=== PATIENT | female | born 1995 | race Caucasian/White ===

== ENCOUNTER → 2017-07-01 | Day surgery (SDC) | payer BC, OTHER ==
[2017-06-18 11:50] VITALS: Ht 172.7 cm; Wt 54.5 kg
--- NOTE | 2017-06-30 08:45 | History and Physical: Surg Cnt ---
History & Physical Date June 30, 2017. Chief Complaint tonsillitis History of Present Illness The patient is a 21 year old female with complaints of chronic tonsillitis Additional History Hepatic Disease: No Endocrine Disorder: No Kidney Disease: No Hypertension: No Heart Disease: No Bleeding Tendencies: No Infectious Diseases: No Allergies Coded Allergies: No Known Allergies (Unverified , 06/18/17) Home Medications Scheduled Clindamycin Hcl (Cleocin), 300 MG PO TID Multiple Vitamins W/ Minerals (Centrum), 1 TAB PO DAILY Physical Examination Skin: warm/dry, no rash Eyes: normal inspection, EOMI, sclerae normal ENT: normal ENT inspection, pharynx normal Head: normocephalic, atraumatic Neck: supple, no adenopathy, trachea midline Respiratory/Chest: lungs clear, normal breath sounds, no respiratory distress Cardiovascular: regular rate, rhythm, no edema, no murmur Abdomen / GI: normal bowel sounds, non tender Back: normal inspection Extremities: normal inspection, normal range of motion Neurologic/Psych: no motor/sensory deficits, alert, normal reflexes, oriented x 3 Diagnosis chronic tonsillitis Plan of Treatment adenotonsillectomy
[~2017-07-01] VITALS: Ht 172.7 cm; Wt 54.5 kg
[~2017-07-01] MED LIST: ACETAMINOPHEN/HYDROCODONE ELIX 15 ML/CUP UDP PO PRN; ALBUTEROL 0.083% NEBU SOLN 3 ML VIAL INH STA; ATROPINE SULFATE 0.1 MG/ML 5ML SYR IV PRN; BUPIVACAINE/EPINEPHRINE 0.5% MPF 1:200,000 30 ML VIAL ONE; CEFAZOLIN 1000MG IV PUSH 7.5 ML IV SCH; CLIN300C2 PO; EpHEDrine SULFATE INJ 50 MG/ML AMP IV PRN; FENTANYL CITRATE INJ 50 MCG/1 ML 2 ML VIAL IV PRN; FENTANYL CITRATE INJ 50 MCG/1 ML 2 ML VIAL ONE; FLUMAZENIL 0.1 MG/1 ML 10 ML VIAL IV PRN; GLYCOPYRROLATE INJ 0.2 MG/ML VIAL ONE; HYDR1SOL10 PO; LIDOCAINE HCL 2% 2 ML VIAL (20MG/ML) ONE; MIDAZOLAM HCL 1 MG/ML 2ML VIAL ONE; MULTTAB5 PO; NALOXONE HCL 0.4 MG/1 ML VIAL/CARP IV PRN; NEOSTIGMINE METHYLSULFATE 5 MG/5 ML SYR ONE; NURSING VERBAL MED ORDER ONE; ONDANSETRON INJ 2 MG/ML 2 ML VIAL IV PRN; PROMETHAZINE HCL INJ 12.5 MG in SODIUM CHLORIDE 0.9% 50ML 50 ML IV PRN; PROPOFOL IV EMULSION 10 MG/ML 20 ML VIAL ONE; RACEPINEPHRINE 2.25% NEBU SOLN 0.5 ML VIAL INH ONE; SODIUM CHLORIDE 0.9% 1000ML 1,000 ML IV SCH; SODIUM CHLORIDE 0.9% NEBU SOLN 3 ML NEB ONE
--- NOTE | 2017-07-01 07:56 | History & Physical Bridge Note ---
H&P Re-Evaluation Bridge Note: I have examined the patient, reviewed the History & Physical and in the interval since the performance of the History & Physical I have noted the following changes of clinical significance: No changes noted
[2017-07-01] MEDS: LACTATED RINGER'S 1000ML 1,000 ML IV SCH ×2 (07:57→10:12)
--- NOTE | 2017-07-01 08:59 | Discharge Instructions-SurgCtr ---
Discharge Instructions Date of Service July 01, 2017. Visit Reason for Visit: Chronic Tonsillitis Discharge Discharge Diagnosis / Problem: same Discharge Goals Goal(s): Improve disease control Activity Recommendations Activity Limitations: per Instructions/Follow-up section Anesthesia . Post Anesthesia Instructions: If you have had General Anesthesia or IV Sedation: * Do not drive today. * Resume driving when surgeon permits. * Do not make important decisions or sign legal documents today. * Call surgeon for: 1. Temperature elevations greater than 101 degrees F. 2. Uncontrollable pain. 3. Excessive bleeding. 4. Persistent nausea and vomiting. 5. Medication intolerance (nausea, vomiting or rash). * For nausea and vomiting use only clear liquids such as: tea, soda, bouillon until nausea subsides, then gradually increase diet as tolerated. * If you have any concerns or questions, call your surgeon's office. If physician is unavailable and it is an emergency, call 911 or go to the nearest emergency room. . Instructions / Follow-Up Instructions / Follow-Up ACTIVITY RECOMMENDATIONS: * During the first few days, activities should be limited. * Stay indoors for several days. * After 48 hours, activity can gradually be increased to normal activity. RETURN TO SCHOOL/WORK: * Return to school or work in one week. * No physical education for two weeks. OVER THE COUNTER MEDICATIONS: * You may use Tylenol * Avoid aspirin or aspirin containing products, e.g. as they may increase bleeding. SPECIAL CARE INSTRUCTIONS: * Avoid coughing or clearing the throat. * Do not use a straw. * A sore throat is expected frequently accompanied by pain radiating to the ears. This is normal. * Expect bad breath until "scabs" are healed. * Notify the doctor if bleeding occurs, vomiting, temperature greater than 101 degrees Fahrenheit. Call or cell phone: . * If bleeding occurs, it is usually in the first 24 hours or after the 5th day. If unable to reach the doctor, go to the nearest Emergency Department. Special Diet: * Fluids are very important and should be encouraged to maintain adequate hydration. * To maintain nutrition, eat soft foods and after 48 hours the consistency of foods can be increased. Examples are jello, soup, pasta, ice cream and mashed foods. FOLLOW UP VISIT: Follow-up visit with Dr. Mcgee in 2 weeks. Please call to schedule if not already scheduled. Diet Recommendations Home Diet: special diet Diet Texture: Mechanical Soft (ground) Pending Studies Studies pending at discharge: no Medical Emergencies . Who to Call and When: Medical Emergencies: If at any time you feel your situation is an emergency, please call 911 immediately. . Non-Emergent Contact Non-Emergency issues call your: Primary Care Provider . . "Provider Documentation" section prepared by Viktoriya Mcgee. . [place] Drug Monitoring Program Search Results: no issues identified
--- NOTE | 2017-07-01 09:19 | [facility] Post Operative Brief Note ---
Immediate Operative Summary Operative Date July 01, 2017. Pre-Operative Diagnosis Chronic Tonsillitis Post-Operative Diagnosis Same Procedure(s) Performed Tonsillectomy And Adenoidectomy Surgeon Dr. Mcgee [employer] Steward/Stewardess Surgeon(s) None Estimated Blood Loss 5 mL Findings Consistent with Post-Op Diagnosis Specimens A. Right Tonsil B. Left Tonsil Drains None Anesthesia Type General Complication(s) none Disposition Accompanied Pt To Recover: yes Disposition: Recovery Room / PACU Overlapping Procedure I was present for: the critical portions of procedure. I was immediately available: during the entire case
[2017-07-01 10:42] VITALS: BP 107/64; PULSE 93; TEMP 37.4; O2SAT 97
--- NOTE | 2017-07-01 10:55 | OPERATIVE REPORT ---
DATE OF OPERATION: 07/01/2017 PREOPERATIVE DIAGNOSES: Chronic tonsillitis and adenoid hypertrophy. POSTOPERATIVE DIAGNOSIS: Chronic tonsillitis and adenoid hypertrophy. PROCEDURE: Adenotonsillectomy. SURGEON: Viktoriya Mcgee MD ANESTHESIA: General endotracheal. COMPLICATIONS: None. BLOOD LOSS: 5 mL HISTORY: A 21-year-old with recurrent chronic tonsillitis with 4 episodes of peritonsillar abscess. DESCRIPTION OF PROCEDURE: The patient was brought to the operating room and placed in supine position. General endotracheal anesthesia was induced, draped in the usual manner. Mouth gag was placed. Peritonsillar area was injected with .5% Sensorcaine, 1:200:000 strength Epinephrine. Soft palate retracted using a red Eldridge catheter. Tonsillectomy performed using the coblation device coblating out the tonsil from anterior to the posterior pillar and from the superior pole to the inferior pole. Both tonsils were removed in a similar manner. Hemostasis was controlled with the coblation device. Adenoidectomy was performed using the coblation technique and hemostasis controlled using the coblation technique. The patient tolerated the procedure well and was taken to the recovery room in satisfactory condition. I attest to the content of the Intraoperative Record and any orders documented therein. Any exception s are noted below.
--- NOTE | 2017-07-01 11:09 | Anesthesia Progress Nt - [facility] ---
Anesthesia Post Op Note Date & Time July 01, 2017 at 11:08 Vital Signs Pain Intensity: 7 Vital Signs Past 12 Hours Date Time Temp Pulse Resp B/P (MAP) Pulse Ox O2 Delivery O2 Flow Rate FiO2 07/01/17 10:42 37.4 93 12 107/64 (78) 97 Room Air 07/01/17 10:31 37.6 122/70 07/01/17 10:28 91 14 96 07/01/17 10:28 88 14 07/01/17 10:26 123/73 07/01/17 10:23 104 25 97 07/01/17 10:23 105 25 07/01/17 10:21 118/74 07/01/17 10:18 83 16 97 07/01/17 10:18 84 16 07/01/17 10:16 127/70 07/01/17 10:13 107 23 07/01/17 10:13 103 23 100 07/01/17 10:11 122/66 07/01/17 10:08 80 18 100 07/01/17 10:08 77 18 07/01/17 10:06 109/70 07/01/17 10:03 69 8 99 07/01/17 10:03 69 8 07/01/17 10:01 122/70 07/01/17 09:58 64 8 07/01/17 09:58 64 8 100 07/01/17 09:56 114/66 07/01/17 09:53 88 18 100 07/01/17 09:53 88 18 07/01/17 09:51 128/70 07/01/17 09:48 66 22 07/01/17 09:48 64 22 100 07/01/17 09:46 126/69 07/01/17 09:43 79 12 07/01/17 09:43 80 12 99 07/01/17 09:41 108/57 07/01/17 09:39 100/61 07/01/17 09:38 76 07/01/17 09:38 36.4 85 12 100/61 100 Humidified Oxygen 10 Mask 07/01/17 09:38 76 93 07/01/17 07:37 36.5 61 20 125/71 (89) 99 Room Air Notes Mental Status: alert / awake / arousable, participated in evaluation Pt Amnestic to Procedure: Yes Nausea / Vomiting: adequately controlled Pain: adequately controlled Airway Patency, RR, SpO2: stable & adequate BP & HR: stable & adequate Hydration State: stable & adequate Anesthetic Complications: no major complications apparent
== END | disposition home or self-care (01) ==
LOC: X.SURG 07:27
PROVIDERS: ATTEND Otolaryngology
DX: J35.01 Chronic tonsillitis (principal); J35.3 Hypertrophy of tonsils with hypertrophy of adenoids; J45.909 Unspecified asthma, uncomplicated